=== PATIENT | female | born 1985 | race Caucasian/White ===

== ENCOUNTER 2023-05-13 09:43 | Emergency (ER) | payer OTHER, SELFPAY ==
[2023-05-13] VITALS (10 sets, daily range): BP systolic 118–155; BP diastolic 69–90; PULSE 90–108; RESP 10–28; TEMP 36.6; O2SAT 96–100
--- NOTE | 2023-05-13 09:52 | ECG_ITS ---
Measurements Intervals [place] Rate: 90 P: 57 AL: 154 QRS: 3 QRSD: 84 T: 51 QT: 343 QTc: 420 Interpretive Statements SINUS RHYTHM LOW QRS VOLTAGE IN PRECORDIAL LEADS [QRS DEFLECTION < 1.0 mV IN CHEST LEADS] NO PREVIOUS ECG AVAILABLE FOR COMPARISON Electronically Signed On 05-13-2023 11:06:24 CDT by Arsenio Hyatt M.D.
[2023-05-13] MEDS: SODIUM CHLORIDE 0.9% IV 1,000 ML 999 ML IV CONT (10:03)
[2023-05-13 10:43] LABS: Basophils Absolute Auto 0.1 K/mm3 (0.0-0.1); Basophils Percent Auto 0.9 % (0.2-1.2); Eosinophils Absolute Auto 0.5 K/mm3 (0-0.3); Eosinophils Percent Auto 4.6 % (0-4.4); Hematocrit 51.1 % (37.0-47.0); Hemoglobin 15.9 g/dL (12.0-15.0); Immature Granulocyte Absolute 0.05 K/mm3 (0.00-0.031); Immature Granulocyte Percent A 0.5 % (0-0.5); Immature Platelet Fraction Pct 1.6 % (0.9-11.2); Lymphocytes Absolute Auto 1.79 K/mm3 (0.9-3.2); Lymphocytes Percent Auto 18.5 % (18.3-44.2); Mean Corpuscular HGB Conc 31.1 g/dl (32-36); Mean Corpuscular Hemoglobin 31.5 pg (26-34); Mean Corpuscular Volume 101.2 fl (80-100); Mean Platelet Volume 8.8 fl (7.4-10.4); Monocytes Absolute Auto 0.7 K/mm3 (0.1-0.6); Monocytes Percent Auto 6.8 % (2.6-8.5); Neutrophils Absolute Auto 6.7 K/mm3 (1.3-6.7); Neutrophils Percent Auto 68.7 % (45.5-73.1); Platelet Count Result 284 k/mm3 (150-375); Red Blood Count 5.05 M/mm3 (4.2-5.4); Red Cell Distribution Width 12.8 % (11.5-14.5); White Blood Count 9.7 K/mm3 (4.5-10.0)
[2023-05-13 11:03] LABS: Albumin Level 4.9 g/dL (3.5-5.1); Alkaline Phosphatase 48 U/L (38-126); Anion Gap 18 mmol/L (4-12); Aspartate Amino Transferase 64 U/L (14-36); Bilirubin,Total 0.7 mg/dL (0.2-1.3); Blood Urea Nitrogen 12 mg/dL (7-17); Calcium 9.8 mg/dL (8.4-10.2); Carbon Dioxide 14 mmol/L (22-30); Chloride 105 mmol/L (98-107); Estimated CRCL calculation 89 ml/min; Estimated Glomerular Filt Rate > 60; Glucose 117 mg/dL (65-110); Potassium 4.4 mmol/L (3.4-5.0); Sodium 137 mmol/L (137-145)
[2023-05-13 11:26] LABS: Alanine Aminotransferase 55 U/L (6-35)
--- NOTE | 2023-05-13 11:45 | ED.SEIZURE ---
HPI - Seizure General Chief Complaint: Seizure Stated Complaint: postictal Time Seen by Provider: 05/13/23 09:44 History of Present Illness HPI Narrative: Patient is a 38-year-old female who presents ER status post seizure. She was at work when it occurred. She has a known seizure disorder and takes Lamictal. She has been compliant with all medication. No new stressors. Patient had loss of urine and tongue biting. No change in sleep pattern. Patient initially postictal for EMS but is now orient x3 but still little foggy. has arrived and is at bedside. patient's neurologist is located [facility]. Related Data Home Medications Medication Instructions Recorded Confirmed fluvoxamine 100 mg tablet mg 05/13/23 05/13/23 lamotrigine 100 mg tablet mg 05/13/23 levothyroxine 125 mcg tablet mcg 05/13/23 rosuvastatin 40 mg tablet mg 05/13/23 Allergies Allergy/AdvReac Type Severity Reaction Status Date / Time Penicillins Allergy Hives Verified 05/13/23 09:56 Review of Systems Review of Systems: All systems reviewed & are unremarkable except as noted in HPI and below Constitutional: Constitutional: Reports no additional constitutional complaints Cardiovascular: Cardiovascular: Reports no additional cardiovascular complaints Respiratory: Respiratory: Reports no additional respiratory complaints Gastrointestinal: Gastrointestinal: Reports no additional gastrointestinal complaints Neurologic: Denies headache(s), Denies focal weakness and Denies numbness Comments: Seizure PMFSH Past Medical History Medical History (Updated 05/13/23 @ 19:31 by Jez Roca MD) Bipolar disorder Seizure Exam Narrative: GENERAL: Well-appearing, well-nourished, and in no acute distress. HEAD: Normocephalic, atraumatic. EYES: PERRL and EOMI. ENT: Mucous membranes moist. Abrasion to the tip of tongue. Dry blood on lips. CHEST: Clear to auscultation. No respiratory distress. HEART: Regular rate and rhythm. Normal peripheral pulses. ABDOMEN: Soft, nontender, nondistended. EXTREMITIES: Normal range of motion. No edema. SKIN: Warm, dry, no rash. NEURO: Alert and oriented x3. PSYCH: Normal mood and affect. Course Course Emergency Course: Patient is awake alert orient x3. Vital signs normal. Patient would like to be discharged home. I have offered to call her neurologist to discuss changing her Lamictal dosage. She declines and she reports she will contact her neurologist on her own. She is aware that she has middle level pending that will likely come back after hours. I discussed return precautions. We have also discussed that she should not be operating motor vehicle until she is 6 months seizure-free. present for conversation. Vital Signs Vital signs: Vital Signs Temperature 97.9 F 05/13/23 09:45 Pulse Rate 108 H 05/13/23 09:45 Respiratory Rate 20 05/13/23 09:45 Blood Pressure 155/90 H 05/13/23 09:45 Pulse Oximetry 97 05/13/23 09:45 Oxygen Delivery Room Air 05/13/23 09:45 Temperature 97.9 F 05/13/23 09:45 Pulse Rate 99 05/13/23 11:46 Respiratory Rate 15 05/13/23 11:46 Blood Pressure 134/78 05/13/23 11:46 Pulse Oximetry 98 05/13/23 11:46 Oxygen Delivery Room Air 05/13/23 09:50 MDM - Seizure Lab Data 05/13/23 10:33 05/13/23 10:33 Labs: Lab Results 05/13/23 Range/Units 10:33 WBC 9.7 (4.5-10.0) K/mm3 RBC 5.05 (4.2-5.4) M/mm3 Hgb 15.9 H (12.0-15.0) g/dL Hct 51.1 H (37.0-47.0) % MCV 101.2 H (80-100) fl MCH 31.5 (26-34) pg MCHC 31.1 L (32-36) g/dl RDW 12.8 (11.5-14.5) % Plt Count 284 (150-375) k/mm3 MPV 8.8 (7.4-10.4) fl Immature Gran % (Auto) 0.5 (0-0.5) % Neut % (Auto) 68.7 (45.5-73.1) % Lymph % (Auto) 18.5 (18.3-44.2) % Steele % (Auto) 6.8 (2.6-8.5) % Eos % (Auto) 4.6 H (0-4.4) % Baso % (Auto) 0.9 (0.2-1.2) % Lymph # (Auto) 1.79 (0.9-3.2) K/mm3 M
[2023-05-16 07:55] LABS: Lamotrigine Lamictal 0.5 mcg/mL (2.5-15.0)
== END 2023-05-13 12:05 | disposition home or self-care (01) ==
PROVIDERS: Emergency Provider Emergency Medicine
DX: G40.909 Epilepsy, unspecified, not intractable, without status epilepticus (principal); F31.9 Bipolar disorder, unspecified
CPT/HCPCS: 36415; 80053; 80175; 85025; 85055; 93005; 96360; 99283; J7030